=== PATIENT | female | born 1985 | race Hispanic/Latino ===

== ENCOUNTER 2017-08-16 17:31 | Emergency (ER) | payer SELFPAY ==
--- NOTE | 2017-08-16 18:06 | RAD ---
AP VIEW CHEST DATE: 08/16/2017 HISTORY: Chest pain. FINDINGS: The lungs are well-aerated. No evidence of effusions, pneumonia, or pneumothorax seen. IMPRESSION: Unremarkable AP view of the chest. POS: [facility]
[2017-08-16] MEDS ORDERED: Metoclopramide HCl 10 MG/2 ML VIAL ONE (18:07)
[2017-08-16] MEDS ORDERED: Ketorolac Tromethamine 30 MG/ML VIAL ONE (18:07)
[2017-08-16] MEDS ORDERED: diphenhydrAMINE 50 MG/ML VIAL ONE (18:07)
[2017-08-16 18:08] LABS: #Monocytes 0.3 thou/uL (0.11-0.59); #Neutrophils 2.6 thou/uL (1.40-6.50); %Basophils 0.3 % (0.0-1.0); %Eosinophils 0.9 % (0.0-10.0); %Lymphocytes 25.4 % (21.0-51.0); %Monocytes 7.7 % (0.0-10.0); Hematocrit 40.9 % (36.0-47.0); Mean Platelet Volume 6.5 fL (7.4-10.4); Red Blood Cell (RBC) Count 4.68 mill/uL (4.20-5.40)
[2017-08-16 18:34] LABS: ALT (SGPT) 27 U/L (8-55); AST (SGOT) 25 U/L (5-34); Alkaline Phosphatase 61 U/L (40-150); Anion Gap 10 mmol/L (10-20); BUN (Urea Nitrogen) 13 mg/dL (7.0-18.7); Bilirubin, Total 0.5 mg/dL (0.2-1.2); CK (CPK) 92 U/L (29-168); Calc. Creatinine Clearance 0 mL/min (70-130); Calcium 9.6 mg/dL (7.8-10.44); Carbon Dioxide 26 mmol/L (22-29); Chloride 104 mmol/L (98-107); Estimated GFR-MDRD Greater than 90; Globulin 3.6 g/dL (2.4-3.5); Lipase 19 U/L (8-78); Protein, Total 7.7 g/dL (6.0-8.3)
[2017-08-16 18:36] LABS: Troponin I Less than 0.010 ng/mL (< 0.028)
== END 2017-08-16 19:41 | disposition home or self-care (01) ==
LOC: ERS 17:31
DX: R51 Headache (principal)
CPT/HCPCS: 36415; 71010; 80053; 82553; 83690; 84484; 84702; 85025; 93005; 96361; 96374; 96375; J1200; J1885; J2765

== ENCOUNTER 2021-10-13 20:28 | Emergency (ER) | payer SELFPAY ==
[2021-10-13] MEDS ORDERED: Metoclopramide HCl 10 MG/2 ML VIAL ONE (21:20)
[2021-10-13] MEDS ORDERED: Magnesium 2 GM/50 ML BAG (IN WATER) ONE (21:20)
[2021-10-13] MEDS ORDERED: Acetaminophen 500 MG TAB ONE (21:20)
[2021-10-13 21:29] LABS: #Lymphocytes 0.3 thou/uL (1.20-3.40); #Monocytes 0.1 thou/uL (0.11-0.59); #Neutrophils 6.2 thou/uL (1.40-6.50); %Basophils 0.1 % (0.0-1.0); %Eosinophils 0.1 % (0.0-10.0); %Lymphocytes 3.9 % (21.0-51.0); %Monocytes 0.7 % (0.0-10.0); %Neutrophils 95.2 % (42.0-75.0); Hemoglobin 12.7 g/dL (12.0-16.0); Mean Corpuscular HGB CONC 34.1 g/dL (32.0-36.0); Mean Corpuscular Hemoglobin 30.1 pg (27.0-31.0); Mean Corpuscular Volume 88.2 fL (78.0-98.0); Mean Platelet Volume 6.5 fL (7.4-10.4); Platelet Count 316 thou/uL (130-400); RBC Distribution Width 12.2 % (11.5-14.5); Red Blood Cell (RBC) Count 4.22 mill/uL (4.20-5.40); White Blood Cell (WBC) Count 6.6 thou/uL (4.8-10.8)
[2021-10-13 21:39] LABS: BHCG - Serum Negative (NEGATIVE); Pregs Control Background? CLEAR/WHITE (CLR/WHITE); Pregs Control Bar Appear? YES (CONTROL BAR)
[2021-10-13 21:44] LABS: ALT (SGPT) 20 U/L (8-55); AST (SGOT) 19 U/L (5-34); Albumin 3.9 g/dL (3.5-5.0); Alkaline Phosphatase 66 U/L (40-110); Anion Gap 13 mmol/L (10-20); BUN (Urea Nitrogen) 18 mg/dL (7.0-18.7); Bilirubin, Total 0.3 mg/dL (0.2-1.2); Calc. Creatinine Clearance 0 mL/min (70-130); Calcium 9.5 mg/dL (7.8-10.44); Carbon Dioxide 25 mmol/L (22-29); Chloride 103 mmol/L (98-107); Globulin 3.2 g/dL (2.4-3.5); Glucose 167 mg/dL (70-105); Potassium 3.8 mmol/L (3.5-5.1); Protein, Total 7.1 g/dL (6.0-8.3); Sodium 137 mmol/L (136-145)
[2021-10-13] MEDS ORDERED: Ketorolac Tromethamine 30 MG/ML VIAL ONE (22:18)
[2021-10-13] MEDS ORDERED: Valproate Sodium 1,500 MG in Sodium Chloride 0.9% 100 ML IVPB SCH (22:30)
== END 2021-10-14 01:17 | disposition home or self-care (01) ==
LOC: ERS 20:28
DX: R51.9 Headache, unspecified (principal); Z79.52 Long term (current) use of systemic steroids; Z79.899 Other long term (current) drug therapy
CPT/HCPCS: 36415; 70450; 80053; 84703; 85025; 93005; 96365; 96366; 96367; 96368; J1885; J2765; J3475; J3490